=== PATIENT | male | born 1990 | race Caucasian/White ===

== ENCOUNTER 2022-10-06 06:55 | Emergency (ER) | payer MEDICAID, OTHER ==
[~2022-10-06] VITALS: Ht 180.3 cm; Wt 113.6 kg
[~2022-10-06 06:55] MED LIST: NO MEDS
[2022-10-06 07:34] LABS: COVID AG,FIA SOURCE NASOPHARYNGEAL
[2022-10-06 11:37] LABS: INFLUENZA TYPE A NEGATIVE FOR TYPE A (NEGATIVE); INFLUENZA TYPE B NEGATIVE FOR TYPE B (NEGATIVE)
[2022-10-06 11:40] VITALS: BP 130/83
== END 2022-10-06 11:41 | disposition home or self-care (01) ==
LOC: EMS 06:55
DX: J02.8 Acute pharyngitis due to other specified organisms (principal); F12.90 Cannabis use, unspecified, uncomplicated; Z93.3 Colostomy status; Z98.890 Other specified postprocedural states; Z20.822 Contact with and (suspected) exposure to COVID-19
CPT/HCPCS: 71045; 87430; 87804; 99284

== ENCOUNTER 2023-06-25 13:35 | Emergency (ER) | payer MEDICAID ==
[~2023-06-25] VITALS: Ht 180.3 cm; Wt 115.9 kg
[2023-06-25 13:38] VITALS: BP 141/91; PULSE 84; RESP 16; TEMP 98.1
[2023-06-25] MEDS ORDERED: CEPH-558 PO (15:10)
== END 2023-06-25 15:19 | disposition home or self-care (01) ==
LOC: EMS 13:35
DX: S81.832A Puncture wound without foreign body, left lower leg, initial encounter (principal); F12.90 Cannabis use, unspecified, uncomplicated; W45.8XXA Other foreign body or object entering through skin, initial encounter; Y93.89 Activity, other specified; Y92.89 Other specified places as the place of occurrence of the external cause; Y99.8 Other external cause status
CPT/HCPCS: 99283; Z7502